=== PATIENT | female | born 1965 | race Caucasian/White ===

== ENCOUNTER → 2018-10-09 | Outpatient (CLI) | payer OTHER | LOC: M.RAD 15:14 | DX: Z12.31 Encounter for screening mammogram for malignant neoplasm of breast (principal) ==

== ENCOUNTER → 2019-10-30 | Outpatient (CLI) | payer OTHER | LOC: M.RAD 14:59 | DX: Z12.31 Encounter for screening mammogram for malignant neoplasm of breast (principal) ==

== ENCOUNTER → 2020-11-10 | Outpatient (CLI) | payer OTHER | LOC: M.RAD 10:22 | PROVIDERS: ATTEND Family Medicine | DX: Z12.31 Encounter for screening mammogram for malignant neoplasm of breast (principal); N60.82 Other benign mammary dysplasias of left breast; N60.81 Other benign mammary dysplasias of right breast ==